=== PATIENT | female | born 1940 | race Caucasian/White ===

== ENCOUNTER 2023-08-15 10:58 | Emergency (ER) | payer MEDICARE, SELFPAY ==
[2023-08-15 11:07] VITALS: BP 106/52; PULSE 64; RESP 16; TEMP 36.5; O2SAT 97
--- NOTE | 2023-08-15 11:13 | ED.URI ---
HPI - URI/Sore Throat General Chief Complaint: Upper Respiratory Infection Stated Complaint: congestion Time Seen by Provider: 08/15/23 11:13 Source: patient Mode of arrival: ambulatory Limitations: no limitations History of Present Illness HPI Narrative: 82-year-old female presents with complaint of nasal congestion, sinus pressure, postnasal drainage, cough for the past 5 days. Afebrile. Denies chest pain and shortness of breath. Patient states taking [id number] cold medication with no relief of symptoms. Patient reports that she does not get sick often. Is concerned that she has a sinus infection. Reports that her drainage has changed clear to green. All Systems reviewed and negative except as noted above. Related Data Home Medications Medication Instructions Recorded Confirmed alprazolam 0.25 mg tablet mg 08/15/23 amlodipine 10 mg tablet mg 08/15/23 citalopram 20 mg tablet mg 08/15/23 labetalol 100 mg tablet mg 08/15/23 lisinopril 40 mg tablet mg 08/15/23 omeprazole 20 mg capsule,delayed mg 08/15/23 release pravastatin 40 mg tablet mg 08/15/23 simvastatin 20 mg tablet mg 08/15/23 tramadol 50 mg tablet mg 08/15/23 Allergies Allergy/AdvReac Type Severity Reaction Status Date / Time No Known Allergies Allergy Verified 08/15/23 11:11 Review of Systems Review of Systems: CONSTITUTIONAL: Denies fever, chills, or sweats. Reports fatigue. EYES: Denies visual changes, redness, or discharge. ENT: Reports rhinorrhea, congestion. Denies sore throat, or otalgia. CARDIOVASCULAR: Denies chest pain, palpitations, or edema. RESPIRATORY: Reports cough. Denies dyspnea. GASTROINTESTINAL: Denies abdominal pain, nausea, vomiting, or diarrhea. GENITOURINARY: Denies dysuria or hematuria. SKIN: Denies rash or itching. MUSCULOSKELETAL: Denies back pain, joint pain, or myalgia. NEUROLOGIC: Denies headache, numbness, or weakness. PSYCHIATRIC: Denies anxiety or depression. All other systems reviewed are negative, except as documented in HPI. PMFSH Comments At time of signature, agree with nursing past medical, surgical, social and family history. There is no relevant family history pertinent to the presenting complaint. Exam Narrative: GENERAL: This is a well-nourished, well-developed patient, in no apparent distress. HEAD: normocephalic, atraumatic. EYES: PERRL. Sclera clear/white. Vision is grossly intact. EARS: External ears normal, auditory canals clear and without drainage, TMs normal without perforation. Hearing grossly intact. NOSE: External nose normal with clear nasal drainage, erythema and swelling to both nares. Moderate congestion, frontal tenderness on palpation. THROAT: Mucous membranes moist, Erythema with postnasal drainage NECK: Neck supple, non-tender without lymphadenopathy, masses or thyromegaly. CARDIOVASCULAR: Regular rate and rhythm without murmurs, gallops, or rubs. RESPIRATORY: Clear to auscultation. Breath sounds equal bilaterally. No wheezes, rales, or rhonchi. SKIN: warm, Dry, intact with no suspicious lesions or rash, good texture and turgor. NEURO: awake, alert, and oriented to person, place and time. There were no obvious focal neurologic abnormalities. EXTREMITIES: No joint tenderness, effusion, or edema noted. Course Course Level of Care: Express Care Visit Vital Signs Vital signs: Vital Signs Temperature 36.5 C 08/15/23 11:07 Pulse Rate 64 08/15/23 11:07 Respiratory Rate 16 08/15/23 11:07 Blood Pressure 106/52 L 08/15/23 11:07 Pulse Oximetry 97 08/15/23 11:07 Oxygen Delivery Room Air 08/15/23 11:07 Temperature 36.5 C 08/15/23 11:07 Pulse Rate 64 08/15/23 11:07 Respiratory Rate 16 08/15/23 11:07 Blood Pressure 106/52 L 08/15/23 11:07 Pulse Oximetry 97 08/15/23 11:07 Oxygen Delivery Room Air 08/15/23 11:07 Reviewed MDM - URI/Sore Throat MDM Narrative Medical decision making narrative: Patient is aware o
== END 2023-08-15 11:25 | disposition home or self-care (01) ==
PROVIDERS: Emergency Provider Nurse Practitioner Family; PCP Internal Medicine
DX: J01.90 Acute sinusitis, unspecified (principal); E78.00 Pure hypercholesterolemia, unspecified; I10 Essential (primary) hypertension; K21.9 Gastro-esophageal reflux disease without esophagitis
CPT/HCPCS: 99213; G0463